=== PATIENT | male | born 1950 | race Caucasian/White ===

== ENCOUNTER 2016-09-28 06:45 | Observation (INO) | payer OTHER, MEDICARE ==
[~2016-09-28] VITALS: Ht 177.8 cm; Wt 71.9 kg
--- NOTE | ~2016-09-28 | EKG ---
[address] [place] [address] ELECTROCARDIOGRAM REPORT Name: LORENZA CARMONA MARIEL Room #: 212-[facility] M.R.#: [id number] Admission: 09/28/16 Attend Phys: Edmundo Chaves MD, Discharge: Date of : 52 Report #: [id number] THIS REPORT FOR: //name// [facility] Test Date: 2016-09-29 Test Time: 07:23:31 Pat Name: LORENZA CARMONA Department: Room: 212 Gender: M Site Director: gina : 1950 Requested By: Edmundo Chaves Order Number: [id number] MD: Armani Durham Measurements Intervals [place] Rate: 94 P: 50 SD: 144 QRS: -89 QRSD: 137 T: 17 QT: 371 QTc: 464 Interpretive Statements Sinus rhythm Right bundle branch block Inferior infarct, old Compared to ECG 09/28/2016 07:47:43 No significant change was found Electronically Signed On 09-29-2016 7:57:28 CDT by Armani Durham [email or web address] <ELECTRONICALLY SIGNED> By: Armani Durham MD, [facility] 09/29/16 0757 2 Armani Durham MD, [facility] /EPI
--- NOTE | ~2016-09-28 | CATHLAB ---
[facility] [address] [place] [address] INVASIVE PROCEDURE REPORT Name: LORENZA CARMONA Room #: 212-P [facility] IN M.R.#: [id number] Admission: 09/28/16 Attend Phys: Edmundo Chaves, Discharge: 09/29/16 Date of : 52 Date of Service: 09/28/16 0948 Report #: [id number] THIS REPORT FOR: //name// CC: Kareem Chaves PROCEDURES PERFORMED: Coronary angiography, PTCA stent of circ OM, PTCA stent of PET [employer] WORK[employer] proximal RCA. DESCRIPTION OF PROCEDURE: The patient brought to the catheterization lab. Angiography had been performed at [facility] previously. Target was actually an OM lesion that was subtotalled and also a chronic total RCA. The right groin was prepped and draped in sterile manner. 1% Xylocaine was used for local anesthesia. Versed was given for conscious sedation. A 6-Peruvian sheath in the right femoral artery. Initially, a 3.5 EBU guide was utilized to inject the left system, left main with mild ostial disease. The LAD has 30% proximal and 50% mid vessel lesion, which is large and then a large first OM subtotally occluded proximal after its takeoff from the circumflex. Utilizing 0.014 Luge wire, heparin, Integrilin boluses and a 2.5 x 12 balloon to dilate the segment. I then exchanged over the wire and magnet for a 2.5 x 12 Resolute drug-eluting stent, postdilated that up to 18 atmospheres, 2.8 mm in size, yielding ROSA M grade 3 flow and no dissection or thrombus formation, this went well without chest pain or EKG changes. I then utilized a JR4 diagnostic chronic total right look like it may be amenable as there was some faint filling. I utilized a JR4 guide, 0.014 Luge wire with some difficulty I was eventually able to cross this total lesion with balloon support and wire manipulation. I should note heparin, Integrilin boluses had been utilized, 2.0 balloon initially, then attempted to deploy a 2.25 stent, could not cross still the lesion, which had some calcification in it. I exchanged again over the wire magnet for a 2.25 balloon and dilated this lesion was very difficult, eventually, I was able to dilate this up and then deployed a 2.25 x 12 Resolute drug-eluting stent, I was able to postdilate that up to 18 atmospheres approaching 2.6 mm in size. The entire vessel significantly enlarged to at least 2 5 vessel, this was of somewhat small and attenuated. I believe due to the collateral filling to the right in the total lesion, but there was marked improvement in the luminal diameter of this dominant right. Tolerated well. Vascular sheath was secured. Mynx closure was utilized. The patient is hemodynamically stable. There is a proximal PDA lesion distally of 60%, which we will follow pain free upon transfer back to CCU. HEMODYNAMICS: Aortic 140/76. IMPRESSION: 1. Successful percutaneous transluminal coronary angioplasty stent of subtotal large first OM lesion 99% to 0 with a 2.5 x 12 Resolute stent to 2.9 mm. 2. Successful percutaneous transluminal coronary angioplasty stent of proximal RCA, chronic total occlusion, which was totaled, then successfully dilated with [facility] [address] [place] [address] INVASIVE PROCEDURE REPORT Name: LORENZA CARMONA Room #: 212-P [facility] M.R.#: [id number] Admission: 09/28/16 Attend Phys: Edmundo Chaves, Discharge: 09/29/16 Date of : 52 Date of Service: 09/28/16 0948 Report #: [id number] a 2.25 x 12 Resolute stent to 2.6 mm, marked improvement in this dominant right filling briskly the PDA which had been filled via the left system. 3. Left main with mild ostial disease. 4. The LAD proximal lesion 30%, midvessel 50%. We will follow moderate diagonal disease. RECOMMENDATIONS AND PLAN: Continue aggressive risk factor modification, dual antiplatelet therapy for at least 1 year. No lifting for 48 hours. No lying in tub, Jacuzzi or bailey for a week. <ELECTRONICALLY SIGNED> By: Edmundo Chaves MD, FACC 10/10/16 1543 0948 1259 Edmundo Chaves MD, FACC /nt
--- NOTE | ~2016-09-28 | H ---
[facility] [address] [place] [address] HISTORY AND PHYSICAL Name: LORENZA CARMONA Room #: 212-P [facility] Rody Wade#: [id number] Admission: 09/28/16 Attend Phys: Edmundo Chaves MD, Discharge: 09/29/16 Date of : 52 Report #: [id number] THIS REPORT FOR: //name// For History and Physical, please see office documentation/handwritten note in the patient's medical record. <ELECTRONICALLY SIGNED> By: Edmundo Chaves MD, FACC 10/10/16 1544 0853 Edmundo Chaves MD, FACC /jr
--- NOTE | ~2016-09-28 | EKG ---
[place] [address] [facility] [place] [address] ELECTROCARDIOGRAM REPORT Name: KRISTINELORENZA [id number] Admission: 09/28/16 Attend Phys: Edmundo Chaves MD, Discharge: Date of : 52 Report #: [id number] THIS REPORT FOR: //name// [facility] Test Date: 2016-09-28 Test Time: 07:47:43 Pat Name: LORENZA CARMONA Department: Room: Gender: M Gum Dipper: gina : 1950 Requested By: Edmundo Chaves Order Number: [id number] MD: Armani Durham Measurements Intervals [place] Rate: 75 P: 33 SC: 171 QRS: -81 QRSD: 140 T: 15 QT: 407 QTc: 455 Interpretive Statements Sinus rhythm Right bundle branch block No previous ECG available for comparison Electronically Signed On 09-28-2016 7:56:00 CDT by Armani Durham [email or web address] <ELECTRONICALLY SIGNED> By: Armani Durham MD, [facility] 09/28/16 0756 0747 0747 Armani Durham MD, FACC /EPI
--- NOTE | ~2016-09-28 | EKG ---
[address] [place] [address] ELECTROCARDIOGRAM REPORT Name: LORENZA CARMONA MARIEL Room #: 212-[facility] M.R.#: [id number] Admission: 09/28/16 Attend Phys: Edmundo Chaves MD, Discharge: Date of : 52 Report #: [id number] THIS REPORT FOR: //name// [facility] Test Date: 2016-09-28 Test Time: 11:47:44 Pat Name: LORENZA CARMONA Department: Room: 212 Gender: M Linux [employer] Administrator: Sandhya ROSAS : 1950 Requested By: Edmundo Chaves Order Number: [id number] MD: Armani Durham Measurements Intervals [place] Rate: 79 P: 49 NE: 173 QRS: -86 QRSD: 147 T: 29 QT: 406 QTc: 466 Interpretive Statements Sinus rhythm Right bundle branch block Inferior infarct, old Compared to ECG 09/28/2016 07:47:43 No significant change was found Electronically Signed On 09-29-2016 7:42:41 CDT by Armani Durham [email or web address] <ELECTRONICALLY SIGNED> By: Armani Durham MD, [facility] 09/29/16 0742 1147 1147 Armani Durham MD, [facility] /EPI
[2016-09-28 07:06] VITALS: BP 133/73
[2016-09-28] MEDS ORDERED: EFFIENT10 MG PO (07:22)
[2016-09-28] MEDS ORDERED: ASPIR 8181 MG PO (07:22)
[2016-09-28] MEDS ORDERED: PRAVACHOL20 MG PO (07:23)
[2016-09-28] MEDS ORDERED: METFORMIN HCL1000 M1 PO (07:24)
[2016-09-28] MEDS ORDERED: VALIUM5 MG PO (07:25)
[2016-09-28] MEDS ORDERED: NORCO 10-325 T1 EACH PO (07:25)
[2016-09-28] MEDS ORDERED: CLONAZEPAM 0.50.5 M1 PO (07:25)
[2016-09-28] MEDS ORDERED: FLOMAX0.4 MG PO (07:26)
[2016-09-28 11:15] VITALS: BP 117/74
[2016-09-28 20:07] VITALS: BP 126/75
[2016-09-28 23:56] VITALS: BP 110/68
[2016-09-29 03:19] LABS: HEMATOCRIT 36.3 % (42.0-52.0); HEMOGLOBIN 12.8 gm/dL (14.0-18.0); MCH 32.2 pg (26.0-34.0); MCHC 35.1 g/dL (28.0-37.0); MCV 91.8 fL (80.0-100.0); RBC 3.95 mil/uL (4.50-6.00); RDW 12.6 % (10.5-14.5); WBC 10.1 thou/uL (4.0-11.0)
[2016-09-29 03:45] LABS: ANION GAP 9 mmol/L (7-16); BUN 12 mg/dL (7-18); CALCIUM 8.3 mg/dL (8.5-10.1); CHLORIDE 99 mmol/L (98-107); CHOLESTEROL 119 mg/dL (<200); CO2 28 mmol/L (21-32); CREATININE 0.8 mg/dL (0.7-1.3); GLUCOSE 161 mg/dL (74-106); HDL CHOLESTEROL 26 mg/dL (>40); LDL CHOLESTEROL 22 mg/dL (<100); POTASSIUM 4.1 mmol/L (3.5-5.1); SODIUM 136 mmol/L (136-145); TC:HDL 4.6 Ratio (Not establshd); TRIGLYCERIDE 355 mg/dL (<150); TROPONIN-I < 0.04 ng/mL (<0.04-0.07); VLDL 71 mg/dL (<40)
[2016-09-29 03:46] LABS: SERUM ASSESSMENT Clear
[2016-09-29 04:07] VITALS: BP 116/64
[2016-09-29 07:55] VITALS: BP 130/82
[2016-09-29] MEDS ORDERED: METOPROLOL SUCC25 M1 PO (08:38)
[2016-09-29] MEDS ORDERED: ASPIRIN325 PO (08:39)
[2016-09-29] MEDS ORDERED: METFORMIN HCL1000 M1 PO (08:40)
[2016-09-29 11:35] VITALS: BP 101/60
[2016-09-29 11:53] VITALS: BP 116/64
== END 2016-09-29 13:30 | disposition home or self-care (01) ==
LOC: CATH 06:45 → 2N 10:38 → CATH 14:39 → 2N 09-29 13:30
PROVIDERS: Internal Medicine Cardiovascular Disease
DX: I65.29 Occlusion and stenosis of unspecified carotid artery (principal); I73.9 Peripheral vascular disease, unspecified; R09.89 Other specified symptoms and signs involving the circulatory and respiratory systems; R07.89 Other chest pain; I44.7 Left bundle-branch block, unspecified; E78.5 Hyperlipidemia, unspecified; E11.9 Type 2 diabetes mellitus without complications; Z86.73 Personal history of transient ischemic attack (TIA), and cerebral infarction without residual deficits

== ENCOUNTER → 2019-09-25 | Outpatient (CLI) | payer OTHER ==
[~2019-09-25] MED LIST: ASPIR 8181 MG PO; ASPIRIN325 PO; CLONAZEPAM 0.50.5 M1 PO; EFFIENT10 MG PO; FLOMAX0.4 MG PO; METFORMIN HCL1000 M1 PO; METOPROLOL SUCC25 M1 PO; NORCO 10-325 T1 EACH PO; PRAVACHOL20 MG PO; VALIUM5 MG PO
== END ==
LOC: SJCVC 14:30
DX: R94.31 Abnormal electrocardiogram [ECG] [EKG] (principal); I45.10 Unspecified right bundle-branch block; I25.10 Atherosclerotic heart disease of native coronary artery without angina pectoris; E78.00 Pure hypercholesterolemia, unspecified; E11.9 Type 2 diabetes mellitus without complications; I73.9 Peripheral vascular disease, unspecified; E78.1 Pure hyperglyceridemia; F17.210 Nicotine dependence, cigarettes, uncomplicated; Z95.5 Presence of coronary angioplasty implant and graft; Z79.899 Other long term (current) drug therapy

== ENCOUNTER → 2020-03-30 | Outpatient (CLI) | payer OTHER | LOC: SJCVCIMAG 09:49 | PROVIDERS: ATTEND Internal Medicine Cardiovascular Disease | DX: I25.10 Atherosclerotic heart disease of native coronary artery without angina pectoris (principal); I45.10 Unspecified right bundle-branch block; E78.5 Hyperlipidemia, unspecified; E11.9 Type 2 diabetes mellitus without complications; Z98.61 Coronary angioplasty status; Z79.82 Long term (current) use of aspirin; Z79.899 Other long term (current) drug therapy ==